=== PATIENT | female | born 1965 | race Caucasian/White ===

== ENCOUNTER → 2016-12-17 | Outpatient (CLI) | payer OTHER ==
[~2016-12-17] VITALS: Ht 154.9 cm; Wt 70.2 kg
[~2016-12-17] MED LIST: AMBI10TA PO; AMIT24CA5 PO; CHOL400D2 PO; FLUTI220I INH; INSULIN HUMAN REGULAR 1,000 UNITS/10 ML VIAL SQ PRN; LACTATED RINGER'S 1000 ML IV SCH; LEXA10TA PO; LOVA20TA PO; METOPROLOL TARTRATE 25 MG TAB PO PRN; OMEP20TA PO; ONABOTULINUMTOXINA INJ 100 UNITS/VIAL ONE; PROM1SUP7 RECTAL; PROPOFOL 200 MG/20 ML AMP IV ONE; SODIUM CHLORID 0.9% 500 ML IV SCH
[2016-12-17 08:59] VITALS: BP 103/69; PULSE 64; RESP 20; TEMP 98; O2SAT 97
[2016-12-17 10:21] VITALS: BP 109/67; PULSE 60; RESP 16; O2SAT 98
== END ==
LOC: HEND 08:15
PROVIDERS: ATTEND Internal Medicine Gastroenterology
DX: K31.84 Gastroparesis (principal); K44.9 Diaphragmatic hernia without obstruction or gangrene; K59.00 Constipation, unspecified; R10.32 Left lower quadrant pain; R11.0 Nausea
CPT/HCPCS: 43236; 99156; J0585

== ENCOUNTER → 2017-05-21 | Outpatient (CLI) | payer OTHER ==
[~2017-05-21] VITALS: Ht 154.9 cm; Wt 68.1 kg
[~2017-05-21] MED LIST changes: +CHLORHEXIDINE GLUCONATE 2 % 1 PACK (2 CLOTHS) TOPICAL PRN; +LACTATED RINGER'S 1000 ML IV PRN; -LACTATED RINGER'S 1000 ML IV SCH; +POVIDONE IODINE 5% (ANTISEPSIS KIT) 4 APPLICATIONS EACH NARE PRN; +SODIUM CHLORID 0.9% 500 ML IV PRN; -SODIUM CHLORID 0.9% 500 ML IV SCH
[2017-05-21 08:51] VITALS: BP 104/64; PULSE 63; RESP 16; TEMP 97.8; O2SAT 97
[2017-05-21 10:49] VITALS: TEMP 98.4
--- NOTE | 2017-05-21 10:59 | GIPROC ---
[facility] [address] [facility]. [facility], [id number] EGD WITH DILATION PROCEDURE REPORT EXAM DATE: 05/21/2017 PATIENT NAME: Robyn Adkins MR#: [id number] BIRTHDATE: 1965 ATTENDING: Lesli Arreguin MD ORDER #: [id number] DRAWBRIDGE TENDER: Last Bell and Melida Palacios STATUS: outpatient INDICATIONS: The patient is a 51 yr old female here for an EGD with dilation due to gastroparesis bloating dysphagia PROCEDURE PERFORMED: EGD w/ biopsy EGD w/ directed submucosal injection(s), any substance EGD w/ dilation of esophagus via guidewire MEDICATIONS: None and Per Anesthesia. TOPICAL ANESTHETIC: none CONSENT: The patient understands the risks and benefits of the procedure and understands that these risks include, but are not limited to: sedation, allergic reaction, infection, perforation and/or bleeding. Alternative means of evaluation and treatment include, among others: physical exam, x-rays, and/or surgical intervention. The patient elects to proceed with this endoscopic procedure. medical equipment was checked for proper function. Hand hygiene and appropriate measures for infection prevention was taken. After the risks, benefits and alternatives of the procedure were thoroughly explained, Informed consent was verified, confirmed and timeout was successfully executed by the treatment team. The patient was anesthetized with topical anesthesia and the Pentax EG-[id number] endoscope was introduced through the mouth and advanced to the second portion of the duodenum. The instrument was slowly withdrawn as the mucosa was fully examined. Gastritis antrum-biopsy esophagitis distal esophagus-biopsy spasm distal esophagus -dilatation Savary 16 100 units of BOTOX injected-25 units /quadrant in pyloric channel. Dilation was performed at gastroesophageal junction. DILATOR: SIZE(S): RESISTANCE: HEME: APPEARANCE: Dilator: Savary over guidewire Size(s): 16 Resistance: minimal Heme: none COMMENT: good result Retroflexed views revealed a hiatal hernia ADVERSE EVENTS: There were no complications. IMPRESSIONS: 1. Gastritis antrum-biopsy esophagitis distal esophagus-biopsy spasm distal esophagus -dilatation Savary 16 100 units of BOTOX injected-25 units /quadrant in pyloric channel 2. Retroflexed views revealed a hiatal hernia RECOMMENDATIONS: 1. Await biopsy results. Biopsy results will not be ready for 7-10 days. If you don't hear from us in two weeks, call our office for biopsy results. 2. Anti-reflux regimen 3. Continue PPI 4. Dilatations PRN REPEAT EXAM: EGD pending biopsy results Lesli Arreguin MD eSigned: Lesli Arreguin MD 05/21/2017 10:59 AM cc: PATIENT NAME: Robyn Adkins MR#: [id number]
[2017-05-21 11:10] VITALS: BP 98/61; PULSE 60; RESP 18; O2SAT 98
== END ==
LOC: HEND 08:02
PROVIDERS: ATTEND Internal Medicine Gastroenterology
DX: K31.84 Gastroparesis (principal); R13.10 Dysphagia, unspecified; R14.0 Abdominal distension (gaseous); K29.70 Gastritis, unspecified, without bleeding; K20.9 Esophagitis, unspecified; K22.4 Dyskinesia of esophagus
CPT/HCPCS: 00740; 43236; 43239; 43248; 88305; 88312; C1769; J0585; J7120

== ENCOUNTER 2017-12-08 14:36 | Emergency (ER) | payer OTHER ==
[~2017-12-08 14:36] MED LIST changes: -AMIT24CA5 PO; +AMIT24CA9 PO; -CHLORHEXIDINE GLUCONATE 2 % 1 PACK (2 CLOTHS) TOPICAL PRN; -INSULIN HUMAN REGULAR 1,000 UNITS/10 ML VIAL SQ PRN; -LACTATED RINGER'S 1000 ML IV PRN; -METOPROLOL TARTRATE 25 MG TAB PO PRN; -OMEP20TA PO; +OMEP20TA93 PO; -ONABOTULINUMTOXINA INJ 100 UNITS/VIAL ONE; -POVIDONE IODINE 5% (ANTISEPSIS KIT) 4 APPLICATIONS EACH NARE PRN; -PROPOFOL 200 MG/20 ML AMP IV ONE; -SODIUM CHLORID 0.9% 500 ML IV PRN
[2017-12-08] MEDS ORDERED: IOHEXOL 350 MG/ML 10 ML VIAL (for RAD DIAG) IVCONTRAST ONE (14:37)
[2017-12-08 14:38] VITALS: BP 156/77; PULSE 86; RESP 17; TEMP 97.9; O2SAT 98
--- NOTE | 2017-12-08 15:25 | RADRPT ---
EXAM DATE/TIME: 12/08/2017 15:06 [facility] COMPARISON: No previous studies available for comparison. INDICATIONS : Constipation for 9 days, evaluate for obstruction MEDICAL HISTORY : hx of small bowel obstruction SURGICAL HISTORY : None. ENCOUNTER: Initial ACUITY: 1 week PAIN SCORE: 8/10 LOCATION: Bilateral abdomen FINDINGS: Moderate stool throughout the colon. Lung spaces are clear.. CONCLUSION: Moderate colonic stool otherwise negative. Checo Peters MD FACR on December 08, 2017 at 15:22 Board Certified Radiologist. This report was verified electronically.
[2017-12-08 15:59] LABS: AUTOMATED NEUTROPHIL # 5.5 TH/MM3 (1.8-7.7); BASOPHIL % 0.6 % (0.0-2.0); EOSINOPHIL # 0.1 TH/MM3 (0-0.4); EOSINOPHIL % 1.4 % (0.0-4.0); HEMOGLOBIN 12.7 GM/DL (11.6-15.3); LYMPH % 18.7 % (9.0-44.0); LYMPHOCYTE # 1.4 TH/MM3 (1.0-4.8); MEAN CELL VOLUME 87.6 FL (80.0-100.0); MEAN CORPUSCULAR HEMOGLOBIN 29.2 PG (27.0-34.0); MEAN CORPUSCULAR HGB CONC 33.3 % (32.0-36.0); MEAN PLATELET VOLUME 8.2 FL (7.0-11.0); MONO % 3.8 % (0.0-8.0); MONOCYTE # 0.3 TH/MM3 (0-0.9); NEUT % 75.5 % (16.0-70.0); PLATELET COUNT 320 TH/MM3 (150-450); RED BLOOD COUNT 4.34 MIL/MM3 (4.00-5.30); RED CELL DISTRIBUTION WIDTH 13.6 % (11.6-17.2); WHITE BLOOD COUNT 7.3 TH/MM3 (4.0-11.0)
[2017-12-08] MEDS ORDERED: VERA1TAB17 PO (16:19)
[2017-12-08] MEDS ORDERED: ALPR0.25 PO (16:19)
[2017-12-08] MEDS ORDERED: ZOFR4TAB PO ×2 (16:19→19:23)
[2017-12-08] MEDS ORDERED: ZINC50TA2 PO (16:19)
[2017-12-08] MEDS ORDERED: VITA100T65 PO (16:19)
[2017-12-08] MEDS ORDERED: FLUO20CA12 PO (16:19)
[2017-12-08] MEDS ORDERED: ESTR1TAB78 VAGINAL (16:20)
[2017-12-08 16:22] LABS: ALBUMIN 3.8 GM/DL (3.4-5.0); ALT (GPT) 25 U/L (10-53); AST (GOT) 13 U/L (15-37); BICARBONATE 28.3 MEQ/L (21.0-32.0); BLOOD UREA NITROGEN 19 MG/DL (7-18); CALCIUM 8.4 MG/DL (8.5-10.1); CHLORIDE 106 MEQ/L (98-107); CREATININE 0.83 MG/DL (0.50-1.00); GLOMERULAR FILTRATION RATE 72 ML/MIN (>89); GLUCOSE,RANDOM 84 MG/DL (74-106); SODIUM (NA) 140 MEQ/L (136-145)
[2017-12-08 16:24] LABS: ALKALINE PHOSPHATASE 136 U/L (45-117); TOTAL BILIRUBIN ADULT 0.3 MG/DL (0.2-1.0); TOTAL PROTEIN 7.3 GM/DL (6.4-8.2)
[2017-12-08 16:30] LABS: BILIRUBIN, URINE NEG (NEG); BLOOD, URINE NEG (NEG); GLUCOSE,URINE NEG (NEG); KETONE, URINE NEG (NEG); MUCUS URINE FEW /lpf (OCC); NITRITE,URINE NEG (NEG); PH, URINE 6.5 (5.0-8.5); SQUAMOUS EPITHELIAL CELL URINE 6 /hpf (0-5); URINE COLOR YELLOW (YELLW/STRAW); URINE LEUKOCYTE ESTERASE NEG (NEG)
--- NOTE | 2017-12-08 16:48 | PD ---
HPI Chief Complaint: Abdominal Pain Time Seen by Provider: 16:40 Travel History International Travel<30 days: No Contact w/Intl Traveler<30days: No Traveled to known affect area: No History of Present Illness HPI 52-year-old female presents emergency department sent from Dr. Arreguin's office with complaints of ongoing and worsening constipation, nausea and vomiting. Dr. Arreguin spoke with Dr. Maurer, regarding this patient requesting a CT scan, labs, and soapsuds enema. Labs and CT and x-ray are ordered in triage. Patient has had troubles with constipation for several months. Patient has 9/ 10 pain he states no bowel movement in 9 days. Patient is generalized abdominal discomfort and cramping which she describes as a 7 out of 10. Patient has been on MiraLAX for the past week per Dr. Arreguin. She also used some Dulcolax suppositories over the weekend, and some mag citrate yesterday with very little results in terms of movement of stool. Patient had some nausea and vomiting today which warranted her coming here to the emergency room for evaluation. Patient denies fever, chills, or other symptoms she has allergies to penicillin PFSH Past Medical History Asthma: Yes Autoimmune Disease: No Anxiety: Yes Depression: No Cancer: Yes (CERVICAL ) Cardiovascular Problems: No High Cholesterol: Yes Chemotherapy: No Diabetes: No Endocrine: No Glaucoma: No Genitourinary: Yes (frequent UTI's and yeast infections) Headaches: Yes Hepatitis: No Hiatal Hernia: Yes Hypertension: No Immune Disorder: No Kidney Stones: Yes (2002) Musculoskeletal: No Neurologic: Yes Psychiatric: Yes (anxiety) Reproductive: No Respiratory: Yes (SEASONAL ASTHMA) Radiation Therapy: No Thyroid Disease: No Ovarian Cysts: Yes Past Surgical History Abdominal Surgery: Yes (RIGHT ING. HERNIA REP.) AICD: No Cardiac Surgery: No Ear Surgery: No Endocrine Surgery: No Eye Surgery: No Gynecologic Surgery: Yes (Total hysterectomy, laser surgery to cervix for cancer) Hysterectomy: Yes (TOTAL WITH OOPHERECTOMY) Joint Replacement: No Oral Surgery: No Pacemaker: No Thoracic Surgery: No Other Surgery: Yes Social History Alcohol Use: Yes (OCC) Tobacco Use: No Substance Use: No Allergies-Medications (Allergen,Severity, Reaction): Coded Allergies: penicillin G (Verified Allergy, Severe, Rash, 12/08/17) hives Reported Meds & Prescriptions Reported Meds & Active Scripts Active Reported Yuvafem Vaginal Tab (Estradiol Vaginal Tab) 10 Mcg Tab 10 Mcg VAGINAL 2XWEEK Zinc Gluconate 50 Mg Tab 50 Mg PO DAILY Vitamin E 100 Unit Tab 400 Units PO DAILY Zofran (Ondansetron HCl) 4 Mg Tab 4 Mg PO Q8HR PRN Alprazolam 0.25 Mg Tab 0.25 Mg PO Q8H PRN Fluoxetine (Fluoxetine HCl) 20 Mg Capsule 20 Mg PO DAILY Verapamil ER 24 HR (Verapamil HCl) 240 Mg Tab 240 Mg PO HS Flovent Hfa 12 GM Inh (Fluticasone Propionate) 220 Mcg/Act Inh 2 Puff INH BID Use daily at the same time. Vitamin D (Cholecalciferol) 400 Unit/Ml Drops 400 Units PO DAILY Ambien (Zolpidem Tartrate) 10 Mg Tab 10 Mg PO HS PRN Phenergan Supp (Promethazine HCl) 25 Mg Supp 25 Mg RECTAL Q4H PRN Omeprazole 20 Mg Tab 20 Mg PO BID Lovastatin 20 Mg Tab 20 Mg PO DAILY Review of Systems Except as stated in HPI: all other systems reviewed are Neg General / Constitutional: No: Fever, Chills Eyes: No: Visual changes HENT: No: Headaches Cardiovascular: No: Chest Pain or Discomfort Respiratory: No: Shortness of Breath Gastrointestinal: Positive: Nausea, Vomiting, Abdominal Pain, Constipation, No : Diarrhea, Hematemesis, Hematochezia, Changes in Bowel Habits, Indigestion, Dysphagia, Loss of Appetite Genitourinary: No: Dysuria Musculoskeletal: No: Pain Skin: No Rash Neurologic: No: Weakness Psychiatric: No: Depression Endocrine: No: Polydipsia Hematologic/Lymphatic: No: Easy Bruising Physical Exam Narrative GENERAL: Patient appears in no obvious distress. SKIN: Warm and dry. Normal color. Normal turgor HEAD: Atraumatic. Normocephalic. EYES: Pupils equal and round. No scleral icterus. No injection or drainage. ENT: No nasal bleeding or discharge. Mucous membranes pink and moist. Pharynx is clear. Airways patent NECK: Trachea midline. Supple and nontender CARDIOVASCULAR: Regular rate and rhythm. RESPIRATORY: No accessory muscle use. Clear to auscultation. Breath sounds equal bilaterally. GASTROINTESTINAL: Abdomen soft, moderate nonspecific generalized tenderness, nondistended. No guarding or rebound. Bowel sounds somewhat diminished in all quadrants. Hepatic and splenic margins not palpable. MUSCULOSKELETAL: Extremities without clubbing, cyanosis, or edema. No obvious deformities. NEUROLOGICAL: Awake and alert. No obvious cranial nerve deficits. Motor grossly within normal limits. Five out of 5 muscle strength in the arms and legs. Normal speech. PSYCHIATRIC: Appropriate mood and affect; insight and judgment normal. Data Data Last Documented VS Vital Signs Date Time Temp Pulse Resp B/P (MAP) Pulse Ox O2 Delivery O2 Flow Rate FiO2 12/08/17 14:38 97.9 86 17 156/77 (103) 98 Orders Orders Complete Blood Count With Diff (12/08/17 14:52) Comprehensive Metabolic Panel (12/08/17 14:52) Lipase (12/08/17 14:52) Prothrombin Time / Inr (Pt) (12/08/17 14:52) Act Partial Throm Time (Ptt) (12/08/17 14:52) Urinalysis - C+S If Indicated (12/08/17 14:52) Abdomen, Upright Only (12/08/17 ) Enema (12/08/17 15:56) Oral Contrast - Adult (12/08/17 16:03) Ondansetron Inj (Zofran Inj) (12/08/17 17:00) Sodium Chlor 0.9% 1000 Ml Inj (Ns 1000 M (12/08/17 16:54) Sodium Chloride 0.9% Flush (Ns Flush) (12/08/17 17:00) Dicyclomine (Bentyl) (12/08/17 17:00) Ketorolac Inj (Toradol Inj) (12/08/17 17:00) Ct Abd/Pel W Iv Contrast(Rout) (12/08/17 17:39) Iohexol 350 Inj (Omnipaque 350 Inj) (12/08/17 14:37) Labs Laboratory Tests Test 12/08/17 15:30 White Blood Count 7.3 TH/MM3 Red Blood Count 4.34 MIL/MM3 Hemoglobin 12.7 GM/DL Hematocrit 38.0 % Mean Corpuscular Volume 87.6 FL Mean Corpuscular Hemoglobin 29.2 PG Mean Corpuscular Hemoglobin Concent 33.3 % Red Cell Distribution Width 13.6 % Platelet Count 320 TH/MM3 Mean Platelet Volume 8.2 FL Neutrophils (%) (Auto) 75.5 % Lymphocytes (%) (Auto) 18.7 % Monocytes (%) (Auto) 3.8 % Eosinophils (%) (Auto) 1.4 % Basophils (%) (Auto) 0.6 % Neutrophils # (Auto) 5.5 TH/MM3 Lymphocytes # (Auto) 1.4 TH/MM3 Monocytes # (Auto) 0.3 TH/MM3 Eosinophils # (Auto) 0.1 TH/MM3 Basophils # (Auto) 0.0 TH/MM3 CBC Comment DIFF FINAL Differential Comment Prothrombin Time 10.0 SEC Prothromb Time International Ratio 1.0 RATIO Activated Partial Thromboplast Time 25.4 SEC Urine Color YELLOW Urine Turbidity CLEAR Urine pH 6.5 Urine Specific [place] 1.020 Urine Protein TRACE mg/dL Urine Glucose (UA) NEG mg/dL Urine Ketones NEG mg/dL Urine Occult Blood NEG Urine Nitrite NEG Urine Bilirubin NEG Urine Urobilinogen 2.0 MG/DL Urine Leukocyte Esterase NEG Urine RBC 1 /hpf Urine WBC 1 /hpf Urine Squamous Epithelial Cells 6 /hpf Urine Mucus FEW /lpf Microscopic Urinalysis Comment CULT NOT INDICATED Blood Urea Nitrogen 19 MG/DL Creatinine 0.83 MG/DL Random Glucose 84 MG/DL Total Protein 7.3 GM/DL Albumin 3.8 GM/DL Calcium Level 8.4 MG/DL Alkaline Phosphatase 136 U/L Aspartate Amino Transf (AST/SGOT) 13 U/L Alanine Aminotransferase (ALT/SGPT) 25 U/L Total Bilirubin 0.3 MG/DL Sodium Level 140 MEQ/L Potassium Level 3.8 MEQ/L Chloride Level 106 MEQ/L Carbon Dioxide Level 28.3 MEQ/L Anion Gap 6 MEQ/L Estimat Glomerular Filtration Rate 72 ML/MIN Lipase 141 U/L [facility] Medical Decision Making Medical Screen Exam Complete: Yes Emergency Medical Condition: Yes Medical Record Reviewed: Yes Differential Diagnosis Gastroparesis. Chronic constipation. Abdominal pain. Obstruction. Fecal bolus. Narrative Course Patient is medically stable at time of exam. Chest x-ray, labs, and CT scan are ordered in triage. CBC is unremarkable. Coagulation studies are normal. Chemistries are unremarkable except a BUN of 19, GFR 72, calcium 8.4, AST 13, alk phos is 136. Urinalysis is unremarkable Chest x-ray shows no acute findings other than moderate stool in the colon noted. CT scan showed: The stomach, small bowel, and colon demonstrate no acute abnormality. There is no free intraperitoneal air or fluid. The appendix is unremarkable. No inflammatory changes. There is a moderate amount of stool throughout the colon. Labs and CT scan results are discussed with the patient. Patient was given Bentyl, Zofran IV, and 1000 mL of normal saline bolus per Patient feels reassured, and would prefer to do enemas at home if possible. Call was placed to Dr. Arreguin to discuss the patient. Dr. Arreguin recommended GoLYTELY, and enemas, and follow-up with her office tomorrow. Diagnosis Primary Impression: Constipation Qualified Codes: K59.01 - Slow transit constipation Referrals: Lesli Arreguin MD Patient Instructions: Constipation (ED), General Instructions Additional Instructions: CBC is unremarkable. Coagulation studies are normal. Chemistries are unremarkable except a BUN of 19, GFR 72, calcium 8.4, AST 13, alk phos is 136. Urinalysis is unremarkable Chest x-ray shows no acute findings other than moderate stool in the colon noted. CT scan showed: The stomach, small bowel, and colon demonstrate no acute abnormality. There is no free intraperitoneal air or fluid. The appendix is unremarkable. No inflammatory changes. There is a moderate amount of stool throughout the colon. Labs and CT scan results are discussed with the patient. Patient was given Bentyl, Zofran IV, and 1000 mL of normal saline bolus per Patient feels reassured, and would prefer to do enemas at home if possible. Call was placed to Dr. Arreguin to discuss the patient. Dr. Arreguin recommended GoLYTELY, and enemas, and follow-up with her office tomorrow. Med/Other Pt SpecificInfo: Prescription(s) given Disposition: DISCHARGE HOME Condition: Stable Carlos Cadena Dec 08, 2017 16:48
[2017-12-08] MEDS ORDERED: SODIUM CHLOR 0.9% 1000 ML INJ 1,000 ML IV SCH (16:54)
[2017-12-08] MEDS ORDERED: DICYCLOMINE HCL 10 MG CAP PO ONE (17:00)
[2017-12-08] MEDS ORDERED: ONDANSETRON HCL 4 MG/2 ML VIAL IVP ONE (17:00)
[2017-12-08] MEDS ORDERED: SODIUM CHLORIDE 0.9% FLUSH 10 ML FLUSH IV FLUSH PRN (17:00)
[2017-12-08] MEDS ORDERED: KETOROLAC TROMETHAMINE 30 MG/ML (IVP) VIAL IVP ONE (17:00)
--- NOTE | 2017-12-08 18:37 | RADRPT ---
EXAM DATE/TIME: 12/08/2017 18:11 [facility] COMPARISON: CT ABDOMEN & PELVIS W CONTRAST, April 10, 2010, 7:32. INDICATIONS : Abdominal pain with nausea and vomiting. IV CONTRAST: 80 cc Omnipaque 350 (iohexol) IV ORAL CONTRAST: No oral contrast ingested. RADIATION DOSE: 9.16 CTDIvol (mGy) MEDICAL HISTORY : Hernia, hiatal. Renal calculi. cervical cancer, hiatal hernia SURGICAL HISTORY : Hysterectomy. ENCOUNTER: Initial ACUITY: 1 week PAIN SCALE: 9/10 LOCATION: abdomen TECHNIQUE: Volumetric scanning of the abdomen and pelvis was performed. Using automated exposure control and ad justment of the mA and/or kV according to patient size, radiation dose was kept as low as reasonably achievable to obtain optimal diagnostic quality images. DICOM format image data is available electro nically for review and comparison. FINDINGS: LOWER LUNGS: The visualized lower lungs are clear. LIVER: Homogeneous density without lesion. There is no dilation of the biliary tree. No calcified gallston es. SPLEEN: Normal size without lesion. PANCREAS: Within normal limits. KIDNEYS: Normal in size and shape. There is no mass, stone or hydronephrosis. ADRENAL GLANDS: Within normal limits. VASCULAR: There is no aortic aneurysm. BOWEL/MESENTERY: The stomach, small bowel, and colon demonstrate no acute abnormality. There is no free intraperitone al air or fluid. The appendix is unremarkable. No inflammatory changes. There is a moderate amount of stool throughout the colon. ABDOMINAL WALL: Within normal limits. RETROPERITONEUM: There is no lymphadenopathy. BLADDER: No wall thickening or mass. REPRODUCTIVE: Within normal limits. INGUINAL: There is no lymphadenopathy or hernia. MUSCULOSKELETAL: Within normal limits for patient age. No significant changes compared to the prior examination. CONCLUSION: Unremarkable and stable CT scan of the abdomen and pelvis compared to the prior study from 2009. Ke Villarreal MD on December 08, 2017 at 18:32 Board Certified Radiologist. This report was verified electronically.
[2017-12-08] MEDS ORDERED: COLY4000S PO (19:23)
[2017-12-08 19:42] VITALS: RESP 20
== END 2017-12-08 19:41 | disposition home or self-care (01) ==
LOC: NEPD 14:36
DX: K59.01 Slow transit constipation (principal); E78.00 Pure hypercholesterolemia, unspecified
CPT/HCPCS: 74018; 74177; 80053; 81001; 83690; 85025; 85610; 85730; 96361; 96374; 96375; 99285; J1885; J2405; J7030; Q9967